=== PATIENT | female | born 1960 | race Caucasian/White ===

== ENCOUNTER → 2023-11-25 09:17 | Outpatient (REF) | payer BC, SELFPAY | LOC: HWRAD 09:17 | PROVIDERS: ATTENDING PHYSICIAN Chiropractor | DX: M53.2X7 Spinal instabilities, lumbosacral region (principal); R10.2 Pelvic and perineal pain | CPT/HCPCS: 72110; 72170 ==

== ENCOUNTER → 2025-02-06 09:45 | Outpatient (REF) | payer BC, SELFPAY | LOC: WDC 09:45 | PROVIDERS: ATTENDING PHYSICIAN Advanced Practice Midwife; FAMILY PHYSICIAN Physician Assistant Medical | DX: R92.8 Other abnormal and inconclusive findings on diagnostic imaging of breast (principal) | CPT/HCPCS: 76642; 77061; 77065 ==

== ENCOUNTER → 2025-08-14 07:50 | Outpatient (REF) | payer BC, SELFPAY | LOC: HWWDC 07:50 | PROVIDERS: ATTENDING PHYSICIAN Advanced Practice Midwife; FAMILY PHYSICIAN Physician Assistant Medical | DX: Z13.31 Encounter for screening for depression (principal) | CPT/HCPCS: 77061; 77065 ==